=== PATIENT | male | born 1990 | race African-American/Black ===

== ENCOUNTER 2019-11-16 16:30 | Inpatient (IN) | payer OTHER ==
[2019-11-16 16:47] VITALS: BMI 21.6
--- NOTE | 2019-11-16 17:35 | BHS.RME ---
Substance Use & Tx History - Substance Use History Alcohol Substance amount: 2 pints vodka Frequency of use: Daily Substance route: Oral Date of Last Use: 11/16/19 (age first use 18) Cocaine- Powder Substance amount: 3 hits Frequency of use: Once a month Substance route: Inhalation (ex: sniffing or snorting) Date of Last Use: 11/09/19 (age of first use 26) Marijuana/Hashish Substance amount: 4 blunts Frequency of use: Daily Substance route: Smoking Date of Last Use: 11/15/19 (age of first use 16) Nicotine Substance amount: 5 cigarettes Frequency of use: Daily Substance route: Smoking Date of Last Use: 11/16/19 (age of first use 16 ) - Last Treatment Date of last treatment: 2014 Treatment type: Substance Use Disorder (MADHAV) Where was last treatment: Detox Physical/Psych/Mental Status - Behavior General Behavior: Decreased activity Eye Contact: Normal - Cooperativeness Cooperativeness: Cooperative - Thinking Thought Processes: Tight Thought content: Future oriented - Physical Health Problems Is patient presently having any pain?: No Does patient presently have any injuries (include location): No Does patient currently have a fever: No Is patient : No CIWA Nausea/Vomitin-No Nausea/No Vomiting Muscle Tremors: 1-None Visible, but [place] Anxiety: 3 Agitation: 1-Slight > Activity Paroxysmal Sweats: No Perspiration Orientation: 0-Oriented Tacttile Disturbances: 0-None Auditory Disturbances: 0-None Visual Disturbances: 0-None Headache: 0-None Present CIWA-Ar Total Score: 5 Treatment Recommendation - Level of Care Level of Care: Acute Medical
--- NOTE | 2019-11-16 18:17 | HP ---
CIWA Score Nausea/Vomitin-No Nausea/No Vomiting Muscle Tremors: 1-None Visible, but [place] Anxiety: 3 Agitation: 1-Slight > Activity Paroxysmal Sweats: No Perspiration Orientation: 0-Oriented Tacttile Disturbances: 0-None Auditory Disturbances: 0-None Visual Disturbances: 0-None Headache: 0-None Present CIWA-Ar Total Score: 5 - Admission Criteria OASAS Guidelines: Admission for Medically Managed Detox: Requires at least one of the followin. CIWA greater than 12 2. Seizures within the past 24 hours 3. Delirium tremens within the past 24 hours 4. Hallucinations within the past 24 hours 5. Acute intervention needed for co occurring medical disorder 6. Acute intervention needed for co occurring psychiatric disorder 7. Severe withdrawal that cannot be handled at a lower level of care (continued vomiting, continued diarrhea, abnormal vital signs) requiring intravenous medication and/or fluids 8. Admitting History and Physical - Admission Chief Complaint: Tone Macias is a 29 year old with history of seizures that presents for alcohol detox. History of Present Illness: Tone Macias is a 29 year old with history of seizures that presents for alcohol detox. - Substance Use History Alcohol Substance amount: 2 pints vodka Frequency of use: Daily Substance route: Oral Date of Last Use: 11/16/19 (age first use 18) Cocaine- Powder Substance amount: 3 hits Frequency of use: Once a month Substance route: Inhalation (ex: sniffing or snorting) Date of Last Use: 11/09/19 (age of first use 26) Marijuana/Hashish Substance amount: 4 blunts Frequency of use: Daily Substance route: Smoking Date of Last Use: 11/15/19 (age of first use 16) Nicotine Substance amount: 5 cigarettes Frequency of use: Daily Substance route: Smoking Date of Last Use: 11/16/19 (age of first use 16 ) PMH: history of meningitis with medically induced coma for 1 year at age 12 PSH: None Psych: untreated depression Social: lives with mother Legal: none History Source: Patient Limitations to Obtaining History: No Limitations - Smoking History Smoking history: Current every day smoker Have you smoked in the past 12 months: Yes Aproximately how many cigarettes per day: 5 - Alcohol/Substance Use Hx Alcohol Use: Yes (VODKA) Admission ROS [facility] - [facility] Chief Complaint: Tone Macias is a 29 year old with history of seizures that presents for alcohol detox. Allergies/Adverse Reactions: Allergies Allergy/AdvReac Type Severity Reaction Status Date / Time No Known Allergies Allergy Verified 10/31/13 15:31 Exam Limitations: No Limitations - Ebola screening Have you traveled outside of the country in the last 21 days: No Have you had contact with anyone from an Ebola affected area: No Have you been sick,other than usual withdrawal symptoms: Yes (Hospitalized 2 weeks ago at [facility] for seizure; left AMA) Do you have a fever: No - Review of Systems Constitutional: Night Sweats EENT: reports: Nose Congestion, Dental Problems. denies: Blurred Vision, Eye Pain, Ear Pain, Hearing Loss Respiratory: reports: Cough, Shortness of Breath Cardiac: denies: Chest Pain, Lightheadedness, Syncope GI: denies: Constipated, Diarrhea, Nausea, Vomiting Musculoskeletal: denies: Back Pain Integumentary: denies: Pruritus, Rash Neuro: denies: Headache, Numbness, Paresthesia Hematology: denies: Blood Clots Psychiatric: reports: Orientated x3 Patient History - Patient Medical History Hx Asthma: No Hx Chronic Obstructive Pulmonary Disease (COPD): No Hx Cardiac Disorders: No Hx Hypertension: No Hx Hypercholesterolemia: No Hx Seizures: No ([place]) Hx Diabetes: No Hx Gastrointestinal Disorders: No Hx Genitourinary Disorders: No Hx Sexually Transmitted Disorders: No Hx Renal Disease (ESRD): No Hx Human Immunodeficiency Virus (HIV): No (NEGATIVE HX) Hx Hepatitis C: No Hx Depression: Yes (ONLY THERAPIST SESSIONS IN THE PAST, NEVER ON MEDS ) Hx Suicide Attempt: No (DENIES) Hx Schizophrenia: No - Patient Surgical History Past Surgical History: No Hx Neurologic Surgery: No Hx Cataract Extraction: No Hx Cardiac Surgery: No Hx Lung Surgery: No Hx Breast Surgery: No Hx Breast Biopsy: No Hx Abdominal Surgery: No Hx Appendectomy: No Hx Section: No Hx Orthopedic Surgery: No Anesthesia Reaction: No - Smoking Cessation Smoking history: Current every day smoker Have you smoked in the past 12 months: Yes Aproximately how many cigarettes per day: 5 Hx Chewing Tobacco Use: No Initiated information on smoking cessation: Yes 'Breaking Loose' booklet given: 11/16/19 Admission Physical Exam BHS - Vital Signs Vital Signs: Vital Signs - 24 hr 11/16/19 16:46 Temperature 98.4 F Pulse Rate 96 H Respiratory 18 Rate Blood Pressure 134/85 - Physical General Appearance: Yes: Intoxicated, Thin HEENTM: Yes: Hearing grossly Normal, Normocephalic, Normal Voice Respiratory: Yes: Decreased Breath Sounds, Wheezing (bilateral wheezes present) Neck: Yes: Within Normal Limits, Supple Breast: Yes: Breast Exam Deferred Cardiology: Yes: Tachycardia Abdominal: Yes: Normal Bowel Sounds, Non Tender, Flat, Soft Back: Yes: Normal Inspection Musculoskeletal: Yes: full range of Motion, Gait Steady Extremities: Yes: Tremors Neurological: Yes: Finger to Nose (disdiadochokinesia) Integumentary: Yes: Within Normal Limits Cleared for Admission S - Detox or Rehab [facility] Level of Care: Medically Managed Detox Regimen/Protocol: Librium Claeared for Rehab Admission: No Screened but not Admitted - Documentation of Visit Screened but not Admitted: No Breathalyzer - Breathalyzer Breathalyzer: 0.214 Urine Drug Screen - Test Device Lot number: [id number] Expiration date: 07/25/21 - Control Is test valid?: Yes - Results Drug screen NEGATIVE: No Urine drug screen results: THC-Marijuana, BZO-Benzodiazepines Inpatient Rehab Admission - Rehab Decision to Admit Inpatient rehab admission?: No
[2019-11-16] MEDS ORDERED: IBUPROFEN 400 MG TABLET (FP) PO PRN (18:30)
[2019-11-16] MEDS ORDERED: MAG HYDROX/AL HYDROX/SIMETH 30 ML UNIT-DOSE CUP PO PRN (18:30)
[2019-11-16] MEDS ORDERED: ACETAMINOPHEN 325 MG TABLET (FP) PO PRN ×2 (18:30)
[2019-11-16] MEDS ORDERED: BISMUTH SUBSALICYLATE 524 MG/30 ML UD PO PRN (18:30)
[2019-11-16] MEDS ORDERED: NICOTINE POLACRILEX 2 MG GUM BUC PRN (18:30)
[2019-11-16] MEDS ORDERED: MAGNESIUM CITRATE 300 ML BOTTLE PO PRN (18:30)
[2019-11-16] MEDS ORDERED: ONDANSETRON *ODT* 4 MG TABLET SL PRN (18:30)
[2019-11-16] MEDS ORDERED: chlordiazePOXIDE HCL 25 MG CAPSULE PO PRN (18:30)
[2019-11-16] MEDS ORDERED: MENTHOL/PHENOL 1 EACH UD MM PRN (18:30)
[2019-11-16] MEDS ORDERED: ONDANSETRON *ODT* 4 MG TABLET SL ONE (18:30)
[2019-11-16] MEDS ORDERED: METHOCARBAMOL 500 MG TABLET PO PRN (18:30)
[2019-11-16] MEDS ORDERED: MAGNESIUM HYDROX 2400MG/30ML ORAL SUSPENSION 30 ML CUP PO PRN (18:30)
[2019-11-16] MEDS ORDERED: ALBUTEROL SO4 HFA INHALER IH PRN (18:35)
[2019-11-16] MEDS: hydrOXYzine PAMOATE 25 MG CAPSULE (FP) PO SCH (22:13)
[2019-11-16] MEDS: MELATONIN 5 MG TABLETS PO SCH (22:13)
[2019-11-16] MEDS: chlordiazePOXIDE HCL 25 MG CAPSULE PO SCH (22:13)
[2019-11-16] MEDS: THIAMINE HCL 100 MG TABLET (FP) PO SCH (22:13)
[2019-11-17] MEDS: hydrOXYzine PAMOATE 25 MG CAPSULE (FP) PO SCH ×5 (05:30→22:12)
[2019-11-17] MEDS: chlordiazePOXIDE HCL 25 MG CAPSULE PO SCH ×4 (05:30→22:11)
[2019-11-17] MEDS: NICOTINE 7 MG/24 HOURS TOPICAL PATCH TD SCH (10:09)
[2019-11-17] MEDS: NICOTINE 14 MG/24 HOURS TOPICAL PATCH TD SCH (10:10)
[2019-11-17] MEDS: PRENATAL VITAMINS W/ FOLIC ACID TABLET (FP) PO SCH (10:11)
--- NOTE | 2019-11-17 10:13 | CONSULT ---
[facility] Psychiatric Consult - Data Date of interview: 11/17/19 Admission source: [facility] Identifying data: Patient is a 29 year old single male, without children, unemployed, domiciled, and is not currently receiving financial assistance. This is one of multiple admissions for patient. Patient admitted to detox for alcohol and marijuana dependence. Substance Abuse History: Substance Use History. Alcohol. Substance amount: 2 pints vodka. Frequency of use: Daily. Substance route: Oral. Date of Last Use: 11/16/19 (age first use 18). Cocaine- Powder. Substance amount: 3 hits. Frequency of use: Once a month. Substance route: Inhalation (ex: sniffing or snorting). Date of Last Use: 11/09/19 (age of first use 26). Marijuana/Hashish. Substance amount: 4 blunts. Frequency of use: Daily. Substance route: Smoking. Date of Last Use: 11/15/19 (age of first use 16). Nicotine. Substance amount: 5 cigarettes. Frequency of use: Daily. Substance route: Smoking. Date of Last Use: 11/16/19 (age of first use 16 ) Medical History: history of meningitis with medically induced coma for 1 year at age 12, history of withdrawal seizures. Psychiatric History: Patient denies history of psychiatric hospitalization, outpatient psychiatric care, and suicide attempt. At present patient reports difficulty sleeping. Physical/Sexual Abuse/Trauma History: denies. Mental Status Exam - Mental Status Exam Alert and Oriented to: Time, Place, Person Cognitive Function: Good Patient Appearance: Well Groomed Mood: Withdrawn Affect: Mood Congruent Patient Behavior: Fatigued, Cooperative Speech Pattern: Appropriate Voice Loudness: Mildly Soft/Quiet Thought Process: Goal Oriented Thought Disorder: Not Present Hallucinations: Denies Suicidal Ideation: Denies Homicidal Ideation: Denies Insight/Judgement: Poor Sleep: Poorly Appetite: Fair Muscle strength/Tone: Normal Gait/Station: Other (Did not observe gait.) Psychiatric Findings - Problem List ([place] 1, 2,3) (1) Alcohol use disorder Current Visit: Yes Status: Acute (2) Cannabis dependence Current Visit: Yes Status: Acute (3) Substance-induced sleep disorder Current Visit: Yes Status: Acute - Initial Treatment Plan Initial Treatment Plan: Psychoeducation provided. Detoxification in progress. Will order Belsomra 10mg HS PRN. Benefits and side effects discussed. Verbal consent given.
[2019-11-17 10:17] LABS: HEMATOCRIT 40.7 % (35.4-49); MCH 30.9 pg (25.7-33.7); MEAN CELL VOLUME 96.7 fl (80-96); MEAN PLT VOLUME 8.3 fl (7.5-11.1); PLATELET COUNT 337 K/MM3 (134-434); RBC 4.21 M/mm3 (4.00-5.60); RDW 14.9 % (11.9-15.9); WHITE BLOOD COUNT 11.6 K/mm3 (4.0-10.0)
[2019-11-17 10:20] LABS: ALBUMIN 3.3 g/dl (3.4-5.0); BLOOD UREA NITROGEN 5.3 mg/dL (7-18); CALCIUM 8.4 mg/dL (8.5-10.1); POTASSIUM 3.4 mmol/L (3.5-5.1)
[2019-11-17 10:22] LABS: BILIRUBIN,TOTAL 0.6 mg/dL (0.2-1); CREATININE 0.6 mg/dL (0.55-1.3); TOT PROT 7.1 g/dl (6.4-8.2)
--- NOTE | 2019-11-17 11:05 | PN ---
S CIWA - CIWA Score Nausea/Vomitin-No Nausea/No Vomiting Muscle Tremors: None Anxiety: 1-Mildly Anxious Agitation: 2 Paroxysmal Sweats: No Perspiration Orientation: 1-Uncertain about Date Tacttile Disturbances: 0-None Auditory Disturbances: 0-None Visual Disturbances: 0-None Headache: 1-Very Mild CIWA-Ar Total Score: 5 S Progress Note (SOAP) Subjective: Patient is a 29 year old male with history of alcohol use disorder, cocaine use disorder, nicotine dependence, marijuana dependence, bacterial meningitis (12 years old, treated at [facility]), depression, admitted on 11/16/2019 for alcohol detox. Patient in bed, resting. Mild distress; agitation, anxiety. Objective: 11/17/19 11:02 General: resting in exam bed, mild distress HEENT: NCAT, PERRL, EOMI Neuro: moving all four extremities equally. Mentation: normal Vital Signs Temperature 97.1 F L 11/17/19 12:55 Pulse Rate 71 11/17/19 12:55 Respiratory Rate 18 11/17/19 12:55 Blood Pressure 147/98 11/17/19 12:55 O2 Sat by Pulse Oximetry (%) 97 11/17/19 12:55 Laboratory Tests 11/17/19 11/17/19 11/17/19 07:30 07:30 07:30 WBC 11.6 H RBC 4.21 Hgb 13.0 Hct 40.7 MCV 96.7 H MCH 30.9 MCHC 32.0 RDW 14.9 D Plt Count 337 D MPV 8.3 Sodium 139 Potassium 3.4 L Chloride 101 Carbon Dioxide 29 Anion Gap 9 BUN 5.3 L Creatinine 0.6 Est GFR (CKD-EPI)AfAm 158.58 Est GFR (CKD-EPI)NonAf 136.83 Random Glucose 98 Calcium 8.4 L Total Bilirubin 0.6 AST 17 ALT 13 Alkaline Phosphatase 85 Total Protein 7.1 Albumin 3.3 L Syphilis Serology Non-reactive Assessment: 11/17/19 11:03 Patient is a 29 year old male with history of alcohol use disorder, cocaine use disorder, nicotine dependence, marijuana dependence, bacterial meningitis (12 years old, treated at [facility]), depression, admitted on 11/16/2019 for alcohol detox. Plan: Alcohol use disorder: continue Librium taper Cocaine use disorder Nicotine dependence: Nicotine patch, gum Marijuana dependence History of bacterial meningitis; treated at [facility] Depression: patient evaluated by psychiatry; begin Suvorexant Hypokalemia: replete with KCL 40meq PO, repeat BMP in morning.
--- NOTE | 2019-11-17 11:22 | EKG ---
Test Reason : Blood Pressure : / mmHG Vent. Rate : 085 BPM Atrial Rate : 085 BPM P-R Int : 174 ms QRS Dur : 102 ms QT Int : 396 ms P-R-T Axes : 077 041 057 degrees QTc Int : 471 ms NORMAL SINUS RHYTHM WITH SINUS ARRHYTHMIA NO PREVIOUS ECGS AVAILABLE Confirmed by SALOME LY MD ([id number]) on 11/17/2019 11:21:28 AM Referred By: Confirmed By:SALOME LY MD
[2019-11-17] MEDS ORDERED: POTASSIUM CHLORIDE ORAL LIQUID 20 MEQ/15 ML PO ONE (14:09)
[2019-11-17] MEDS ORDERED: cloNIDine HCL 0.1 MG TABLET PO ONE (19:21)
[2019-11-17] MEDS ORDERED: SUVOREXANT 10 MG TABLET PO PRN (22:00)
[2019-11-17] MEDS: THIAMINE HCL 100 MG TABLET (FP) PO SCH (22:11)
[2019-11-17] MEDS: MELATONIN 5 MG TABLETS PO SCH (22:12)
[2019-11-18] MEDS: hydrOXYzine PAMOATE 25 MG CAPSULE (FP) PO SCH ×5 (05:55→22:26)
[2019-11-18] MEDS: chlordiazePOXIDE HCL 25 MG CAPSULE PO SCH ×4 (05:55→22:26)
[2019-11-18] MEDS ORDERED: cloNIDine HCL 0.1 MG TABLET PO ONE (07:45)
--- NOTE | 2019-11-18 07:49 | PN ---
S Progress Note Note: Patient's blood pressure was B/P 159/117 and B/P 148/117 respectively. Vital Signs 11/18/19 11/18/19 11/18/19 06:52 07:33 07:34 Temperature 97.1 F L 97.1 F L Pulse Rate 91 H 91 H Respiratory 20 20 Rate Blood Pressure 159/117 H 159/117 H 148/117 H O2 Sat by Pulse 98 98 Oximetry (%) Action: Clonidine 0.1mg tablet ordered
[2019-11-18] MEDS: NICOTINE 14 MG/24 HOURS TOPICAL PATCH TD SCH (10:05)
[2019-11-18] MEDS: PRENATAL VITAMINS W/ FOLIC ACID TABLET (FP) PO SCH (10:06)
[2019-11-18] MEDS: NICOTINE 7 MG/24 HOURS TOPICAL PATCH TD SCH (12:02)
--- NOTE | 2019-11-18 12:02 | PN ---
S CIWA - CIWA Score Nausea/Vomitin-No Nausea/No Vomiting Muscle Tremors: None Anxiety: 3 Agitation: 0-Normal Activity Paroxysmal Sweats: 2 Orientation: 0-Oriented Tacttile Disturbances: 0-None Auditory Disturbances: 0-None Visual Disturbances: 0-None Headache: 2-Mild CIWA-Ar Total Score: 7 BHS Progress Note (SOAP) Subjective: c/o anxiety, headache, and sweats. Objective: 11/18/19 12:02 Vital Signs 11/18/19 11/18/19 11/18/19 06:52 07:33 07:34 Temperature 97.1 F L 97.1 F L Pulse Rate 91 H 91 H Respiratory 20 20 Rate Blood Pressure 159/117 H 159/117 H 148/117 H O2 Sat by Pulse 98 98 Oximetry (%) 11/18/19 08:36 Temperature 97.3 F L Pulse Rate 75 Respiratory 18 Rate Blood Pressure 141/111 H O2 Sat by Pulse Oximetry (%) Laboratory Last Values WBC 11.6 K/mm3 (4.0-10.0) H 11/17/19 07:30 RBC 4.21 M/mm3 (4.00-5.60) 11/17/19 07:30 Hgb 13.0 GM/dL (11.7-16.9) 11/17/19 07:30 Hct 40.7 % (35.4-49) 11/17/19 07:30 MCV 96.7 fl (80-96) H 11/17/19 07:30 MCH 30.9 pg (25.7-33.7) 11/17/19 07:30 MCHC 32.0 g/dl (32.0-35.9) 11/17/19 07:30 RDW 14.9 % (11.9-15.9) D 11/17/19 07:30 Plt Count 337 K/MM3 (134-434) D 11/17/19 07:30 MPV 8.3 fl (7.5-11.1) 11/17/19 07:30 Sodium 139 mmol/L (136-145) 11/17/19 07:30 Potassium 3.4 mmol/L (3.5-5.1) L 11/17/19 07:30 Chloride 101 mmol/L (98-107) 11/17/19 07:30 Carbon Dioxide 29 mmol/L (21-32) 11/17/19 07:30 Anion Gap 9 MMOL/L (8-16) 11/17/19 07:30 BUN 5.3 mg/dL (7-18) L 11/17/19 07:30 Creatinine 0.6 mg/dL (0.55-1.3) 11/17/19 07:30 Est GFR (CKD-EPI)AfAm 158.58 11/17/19 07:30 Est GFR (CKD-EPI)NonAf 136.83 11/17/19 07:30 Random Glucose 98 mg/dL (74-106) 11/17/19 07:30 Calcium 8.4 mg/dL (8.5-10.1) L 11/17/19 07:30 Total Bilirubin 0.6 mg/dL (0.2-1) 11/17/19 07:30 AST 17 U/L (15-37) 11/17/19 07:30 ALT 13 U/L (13-61) 11/17/19 07:30 Alkaline Phosphatase 85 U/L (45-117) 11/17/19 07:30 Total Protein 7.1 g/dl (6.4-8.2) 11/17/19 07:30 Albumin 3.3 g/dl (3.4-5.0) L 11/17/19 07:30 Syphilis Serology Non-reactive (NONREACTIVE) 11/17/19 07:30 Labs noted. Assessment: 11/18/19 12:02 AOX3, in no acute respiratory distress. Full ROM, ambulating in the unit. Withdrawal symptoms. Plan: continue detox.
[2019-11-18 12:58] LABS: BLOOD UREA NITROGEN 4.2 mg/dL (7-18); CALCIUM 8.9 mg/dL (8.5-10.1)
[2019-11-18 13:00] LABS: CREATININE 0.6 mg/dL (0.55-1.3)
[2019-11-18] MEDS: MELATONIN 5 MG TABLETS PO SCH (22:26)
[2019-11-18] MEDS: THIAMINE HCL 100 MG TABLET (FP) PO SCH (22:26)
[2019-11-19] MEDS ORDERED: chlordiazePOXIDE HCL 10 MG CAPSULE PO PRN
[2019-11-19] MEDS: chlordiazePOXIDE HCL 10 MG CAPSULE PO SCH ×4 (05:45→22:10)
[2019-11-19] MEDS: hydrOXYzine PAMOATE 25 MG CAPSULE (FP) PO SCH ×2 (05:46→10:10)
[2019-11-19] MEDS ORDERED: cloNIDine HCL 0.1 MG TABLET PO ONE (05:48)
--- NOTE | 2019-11-19 06:37 | PN ---
[facility] Progress Note Note: Patient's blood pressure is B/P 161/103. PRecheked atient is asymptomatic \ Vital Signs 11/19/19 11/19/19 11/19/19 00:06 05:34 07:09 Temperature 97.1 F L Pulse Rate 77 114 H 74 Respiratory 18 18 18 Rate Blood Pressure 133/100 161/103 H 134/93 O2 Sat by Pulse 98 Oximetry (%) Action: Clonidine 0.1mg tablet oral ordered. Rechecked B/P is now B/P 134/93
[2019-11-19] MEDS: NICOTINE 14 MG/24 HOURS TOPICAL PATCH TD SCH (10:10)
[2019-11-19] MEDS: PRENATAL VITAMINS W/ FOLIC ACID TABLET (FP) PO SCH (10:10)
--- NOTE | 2019-11-19 11:06 | PN ---
S CIWA - CIWA Score Nausea/Vomitin-No Nausea/No Vomiting Muscle Tremors: 1-None Visible, but [place] Anxiety: 1-Mildly Anxious Agitation: 1-Slight > Activity Paroxysmal Sweats: No Perspiration Orientation: 0-Oriented Tacttile Disturbances: 0-None Auditory Disturbances: 0-None Visual Disturbances: 2-Mild Sensitivity Headache: 0-None Present CIWA-Ar Total Score: 5 BHS Progress Note (SOAP) Subjective: 29 years old male admitted on 11/16/19 for alcohol withdrawal sx management treating with librium detox regiment Vital Signs - 24 hr 11/18/19 11/18/19 11/18/19 12:27 16:43 20:39 Temperature 97.3 F L 98.0 F 97.3 F L Pulse Rate 80 81 86 Respiratory 18 18 16 Rate Blood Pressure 123/89 141/93 144/103 H O2 Sat by Pulse 99 98 Oximetry (%) 11/18/19 11/19/19 11/19/19 23:25 00:06 05:34 Temperature 97.1 F L Pulse Rate 86 77 114 H Respiratory 18 18 18 Rate Blood Pressure 151/104 H 133/100 161/103 H O2 Sat by Pulse 98 Oximetry (%) 11/19/19 11/19/19 07:09 08:54 Temperature 97.7 F Pulse Rate 74 82 Respiratory 18 18 Rate Blood Pressure 134/93 130/89 O2 Sat by Pulse Oximetry (%) bp elevation amlodipine 10 mg po Objective: 11/19/19 11:04 Laboratory Tests 11/16/19 11/17/19 11/17/19 17:00 07:30 07:30 WBC 11.6 H RBC 4.21 Hgb 13.0 Hct 40.7 MCV 96.7 H MCH 30.9 MCHC 32.0 RDW 14.9 D Plt Count 337 D MPV 8.3 Sodium Potassium Chloride Carbon Dioxide Anion Gap BUN Creatinine Est GFR (CKD-EPI)AfAm Est GFR (CKD-EPI)NonAf Random Glucose Calcium Total Bilirubin AST ALT Alkaline Phosphatase Total Protein Albumin Syphilis Serology Non-reactive COVID-19 (JAMEL) Not detected 11/17/19 11/18/19 07:30 07:30 WBC RBC Hgb Hct MCV MCH MCHC RDW Plt Count MPV Sodium 139 139 Potassium 3.4 L 4.0 Chloride 101 104 Carbon Dioxide 29 28 Anion Gap 9 7 L BUN 5.3 L 4.2 L Creatinine 0.6 0.6 Est GFR (CKD-EPI)AfAm 158.58 158.58 Est GFR (CKD-EPI)NonAf 136.83 136.83 Random Glucose 98 102 Calcium 8.4 L 8.9 Total Bilirubin 0.6 AST 17 ALT 13 Alkaline Phosphatase 85 Total Protein 7.1 Albumin 3.3 L Syphilis Serology COVID-19 (JAMEL) lab noted Assessment: 11/19/19 11:05 alcohol withdrawal hypertension Plan: librium regiment amlodipine 10 mg po
[2019-11-19] MEDS: amLODIPine BESYLATE 10 MG TABLET (FP) PO SCH (11:31)
[2019-11-19] MEDS ORDERED: hydrOXYzine PAMOATE 25 MG CAPSULE (FP) PO PRN (13:21)
[2019-11-19] MEDS: THIAMINE HCL 100 MG TABLET (FP) PO SCH (21:14)
[2019-11-19] MEDS: MELATONIN 5 MG TABLETS PO SCH (21:14)
[2019-11-20] MEDS: chlordiazePOXIDE HCL 10 MG CAPSULE PO SCH ×2 (06:19→17:21)
[2019-11-20] MEDS: amLODIPine BESYLATE 10 MG TABLET (FP) PO SCH (10:25)
[2019-11-20] MEDS: PRENATAL VITAMINS W/ FOLIC ACID TABLET (FP) PO SCH (10:25)
[2019-11-20] MEDS: NICOTINE 14 MG/24 HOURS TOPICAL PATCH TD SCH (10:26)
--- NOTE | 2019-11-20 11:31 | PN ---
S CIWA - CIWA Score Nausea/Vomitin-No Nausea/No Vomiting Muscle Tremors: 1-None Visible, but [place] Anxiety: 1-Mildly Anxious Agitation: 0-Normal Activity Paroxysmal Sweats: No Perspiration Orientation: 0-Oriented Tacttile Disturbances: 0-None Auditory Disturbances: 0-None Visual Disturbances: 0-None Headache: 0-None Present CIWA-Ar Total Score: 2 BHS Progress Note (SOAP) Subjective: 29 years old male admitted on 11/16/19 for alcohol withdrawal sx management treating with librium detox regiment feeling better today Vital Signs - 24 hr 11/19/19 11/19/19 11/19/19 12:48 16:47 20:28 Temperature 97.7 F 97.7 F 97.5 F L Pulse Rate 96 H 86 95 H Respiratory 18 18 18 Rate Blood Pressure 139/94 140/92 147/98 O2 Sat by Pulse 98 98 Oximetry (%) 11/20/19 11/20/19 06:35 08:32 Temperature 97.6 F 96.7 F L Pulse Rate 77 89 Respiratory 18 18 Rate Blood Pressure 130/86 117/74 O2 Sat by Pulse 100 100 Oximetry (%) bp controlled by amlodipine 10 mg po daily Objective: 11/20/19 11:35 Laboratory Tests 11/16/19 11/17/19 11/17/19 17:00 07:30 07:30 WBC 11.6 H RBC 4.21 Hgb 13.0 Hct 40.7 MCV 96.7 H MCH 30.9 MCHC 32.0 RDW 14.9 D Plt Count 337 D MPV 8.3 Sodium Potassium Chloride Carbon Dioxide Anion Gap BUN Creatinine Est GFR (CKD-EPI)AfAm Est GFR (CKD-EPI)NonAf Random Glucose Calcium Total Bilirubin AST ALT Alkaline Phosphatase Total Protein Albumin Syphilis Serology Non-reactive COVID-19 (JAMEL) Not detected 11/17/19 11/18/19 07:30 07:30 WBC RBC Hgb Hct MCV MCH MCHC RDW Plt Count MPV Sodium 139 139 Potassium 3.4 L 4.0 Chloride 101 104 Carbon Dioxide 29 28 Anion Gap 9 7 L BUN 5.3 L 4.2 L Creatinine 0.6 0.6 Est GFR (CKD-EPI)AfAm 158.58 158.58 Est GFR (CKD-EPI)NonAf 136.83 136.83 Random Glucose 98 102 Calcium 8.4 L 8.9 Total Bilirubin 0.6 AST 17 ALT 13 Alkaline Phosphatase 85 Total Protein 7.1 Albumin 3.3 L Syphilis Serology COVID-19 (JAMEL) lab noted Assessment: 11/20/19 11:37 alcohol withdrawal Plan: librium regiment
[2019-11-20 17:03] VITALS: TEMP 97.5
[2019-11-20] MEDS ORDERED: LISINOPRIL 10 MG TABLET (FP) PO SCH (22:00)
[2019-11-20] MEDS: THIAMINE HCL 100 MG TABLET (FP) PO SCH (22:07)
[2019-11-20] MEDS: MELATONIN 5 MG TABLETS PO SCH (22:08)
[2019-11-21] MEDS ORDERED: chlordiazePOXIDE HCL 10 MG CAPSULE PO ONE (05:00)
[2019-11-21 06:15] VITALS: BP 127/73; PULSE 65
--- NOTE | 2019-11-21 10:00 | DS ---
[facility] Detox Discharge Summary Admission Date: 11/16/19 Discharge Date: 11/21/19 - History Present History: Alcohol Dependence Additional Comments: 29 years old male admitted on 11/16/19 for alcohol withdrawal sx management treated with ativan detox regiment seen by psychiatrist federica wagner mr hart has completed the ativan regiment and is tolerated well alert oriented x 3 speech clearly coherently respiratory clear lung sounds bilaterally on auscultation abdomen soft flat no rebound tenderness skin warm and dry General Appearance: Yes: Intoxicated, Thin HEENTM: Yes: Hearing grossly Normal, Normocephalic, Normal Voice Respiratory: Yes: Decreased Breath Sounds, Wheezing (bilateral wheezes present) Neck: Yes: Within Normal Limits, Supple Breast: Yes: Breast Exam Deferred Cardiology: Yes: Tachycardia Abdominal: Yes: Normal Bowel Sounds, Non Tender, Flat, Soft Back: Yes: Normal Inspection Musculoskeletal: Yes: full range of Motion, Gait Steady Extremities: Yes: Tremors Neurological: Yes: Finger to Nose (disdiadochokinesia) Integumentary: Yes: Within Normal Limits Pertinent Past History: time for discharge 34 minutes - Physical Exam Results Vital Signs: Vital Signs Temperature 97.5 F L 11/21/19 06:13 Pulse Rate 65 11/21/19 06:13 Respiratory Rate 18 11/21/19 06:13 Blood Pressure 127/73 11/21/19 06:13 O2 Sat by Pulse Oximetry (%) 99 11/21/19 06:13 Pertinent Admission Physical Exam Findings: alcohol withdrawal Laboratory Tests 11/16/19 11/17/19 11/17/19 17:00 07:30 07:30 WBC 11.6 H RBC 4.21 Hgb 13.0 Hct 40.7 MCV 96.7 H MCH 30.9 MCHC 32.0 RDW 14.9 D Plt Count 337 D MPV 8.3 Sodium Potassium Chloride Carbon Dioxide Anion Gap BUN Creatinine Est GFR (CKD-EPI)AfAm Est GFR (CKD-EPI)NonAf Random Glucose Calcium Total Bilirubin AST ALT Alkaline Phosphatase Total Protein Albumin Syphilis Serology Non-reactive COVID-19 (JAMEL) Not detected 11/17/19 11/18/19 07:30 07:30 WBC RBC Hgb Hct MCV MCH MCHC RDW Plt Count MPV Sodium 139 139 Potassium 3.4 L 4.0 Chloride 101 104 Carbon Dioxide 29 28 Anion Gap 9 7 L BUN 5.3 L 4.2 L Creatinine 0.6 0.6 Est GFR (CKD-EPI)AfAm 158.58 158.58 Est GFR (CKD-EPI)NonAf 136.83 136.83 Random Glucose 98 102 Calcium 8.4 L 8.9 Total Bilirubin 0.6 AST 17 ALT 13 Alkaline Phosphatase 85 Total Protein 7.1 Albumin 3.3 L Syphilis Serology COVID-19 (JAMEL) lab noted - Treatment Hospital Course: Detox Protocol Followed, Detoxed Safely, Responded well, Discharged Condition Good, Rehab Referral Accepted Patient has Accepted a Rehab Referral to: [facility] - Medication Discharge Medications: Ambulatory Orders Albuterol Sulfate Inhaler - [Ventolin HFA Inhaler -] 2 puff PO Q4HWA PRN 11/16/19 Albuterol Sulfate Inhaler - [Ventolin HFA Inhaler -] 2 puff IH Q4H PRN #1 inhaler 11/20/19 Amlodipine Besylate [Norvasc -] 10 mg PO DAILY #30 tablet 11/20/19 - Diagnosis (1) Alcohol use disorder Current Visit: Yes Status: Acute (2) Hypertension Current Visit: Yes Status: Chronic Qualifiers: Hypertension type: essential hypertension Qualified Code(s): I10 - [facility] l (primary) hypertension - AMA Did Patient Leave Against Medical Advice: No CIWA Score - CIWA Score Nausea/Vomitin-No Nausea/No Vomiting Muscle Tremors: 1-None Visible, but [place] Anxiety: 0-No Anxiety, at Ease Agitation: 0-Normal Activity Paroxysmal Sweats: No Perspiration Orientation: 0-Oriented Tacttile Disturbances: 0-None Auditory Disturbances: 0-None Visual Disturbances: 0-None Headache: 0-None Present CIWA-Ar Total Score: 1
== END 2019-11-21 08:50 | disposition home or self-care (01) | DRG 775 ==
LOC: YASAS 16:30 → Y3N 19:22
PROVIDERS: ADMIT Allergy & Immunology; ATTEND Allergy & Immunology
PROC: HZ2ZZZZ Detoxification Services for Substance Abuse Treatment (ICD-10-PCS; principal; 2019-11-16)
DX: F10.230 Alcohol dependence with withdrawal, uncomplicated (principal); F10.220 Alcohol dependence with intoxication, uncomplicated; F12.20 Cannabis dependence, uncomplicated; F17.210 Nicotine dependence, cigarettes, uncomplicated; F19.282 Other psychoactive substance dependence with psychoactive substance-induced sleep disorder; I10 Essential (primary) hypertension; R00.0 Tachycardia, unspecified; Z86.69 Personal history of other diseases of the nervous system and sense organs
CPT/HCPCS: 36415; 80048; 80053; 85027; 86780; 93005; 93010; J0735; Q0162; U0003

== ENCOUNTER 2021-10-02 07:07 | Observation (INO) | payer OTHER ==
[2021-10-02] MEDS ORDERED: chlordiazePOXIDE HCL 25 MG CAPSULE PO ONE (07:49)
[2021-10-02] MEDS ORDERED: ALBUTEROL SO4 HFA INHALER IH ONE ×2 (07:50→08:55)
[2021-10-02] MEDS ORDERED: chlordiazePOXIDE HCL 25 MG CAPSULE ONE ×2 (08:55→15:50)
[2021-10-02 10:32] LABS: HEMATOCRIT 44.9 % (35.4-49); HEMOGLOBIN 14.8 GM/dL (11.7-16.9); LYMPH % 28.1 % (8-40); MCH 29.5 pg (25.7-33.7); MCHC 32.9 g/dl (32.0-35.9); MEAN CELL VOLUME 89.6 fl (80-96); MEAN PLT VOLUME 8.6 fl (7.5-11.1); MONO % 10.8 % (3.8-10.2); NEUT % 58.1 % (42.8-82.8); PLATELET COUNT 207 10^3/uL (134-434); RBC 5.01 M/mm3 (4.00-5.60); RDW 13.9 % (11.9-15.9)
[2021-10-02 12:41] LABS: BLOOD UREA NITROGEN 5.3 mg/dL (7-18); CREATININE 0.8 mg/dL (0.55-1.3)
[2021-10-02 12:42] LABS: ALBUMIN 5.1 g/dl (3.4-5.0); BILIRUBIN,TOTAL 0.8 mg/dL (0.2-1); TOT PROT 9.3 g/dl (6.4-8.2)
[2021-10-02] MEDS ORDERED: chlordiazePOXIDE HCL 25 MG CAPSULE PO PRN (12:56)
[2021-10-02] MEDS ORDERED: SODIUM CHLORIDE 1,000 ML IV SCH (13:00)
[2021-10-02] MEDS ORDERED: THIAMINE HCL 100 MG TABLET (FP) ONE (13:12)
[2021-10-02] MEDS ORDERED: FOLIC ACID 1 MG TABLET (FP) ONE (13:13)
[2021-10-02] MEDS ORDERED: ALBUTEROL SO4 HFA INHALER IH PRN (13:14)
[2021-10-02] MEDS: THIAMINE HCL 100 MG TABLET (FP) PO SCH (13:21)
[2021-10-02] MEDS: FOLIC ACID 1 MG TABLET (FP) PO SCH (13:21)
[2021-10-02 13:54] LABS: PH,URINE >= 9.0 (5.0-8.0); URINE APPEARANCE CLEAR; URINE BILIRUBIN NEGATIVE (NEGATIVE); URINE COLOR YELLOW; URINE GLUCOSE (UA) NEGATIVE (NEGATIVE); URINE KETONE NEGATIVE (NEGATIVE); URINE LEUK ESTERASE NEGATIVE (NEGATIVE); URINE NITRITE NEGATIVE (NEGATIVE); URINE PROTEIN TRACE (NEGATIVE); URINE UROBILINOGEN 0.2 mg/dL (0.2-1.0)
[2021-10-02] MEDS: chlordiazePOXIDE HCL 25 MG CAPSULE PO SCH ×5 (15:59→23:12)
[2021-10-02] MEDS: LABETALOL HCL 100 MG TABLET (FP) PO SCH (21:43)
[2021-10-03 03:08] VITALS: BMI 24.6
[2021-10-03] MEDS: chlordiazePOXIDE HCL 25 MG CAPSULE PO SCH ×3 (05:20→16:25)
[2021-10-03 09:29] LABS: BASO % 0.9 % (0-2.0); EOS % 3.3 % (0-4.5); HEMATOCRIT 45.7 % (35.4-49); HEMOGLOBIN 15.1 GM/dL (11.7-16.9); MCHC 33.1 g/dl (32.0-35.9); MEAN CELL VOLUME 90.5 fl (80-96); MEAN PLT VOLUME 8.6 fl (7.5-11.1); MONO % 11.8 % (3.8-10.2); PLATELET COUNT 199 10^3/uL (134-434); RBC 5.04 M/mm3 (4.00-5.60); RDW 14.1 % (11.9-15.9); WHITE BLOOD COUNT 5.4 K/mm3 (4.0-10.0)
[2021-10-03 09:41] LABS: ACTIVATED PTT 31.5 SECONDS (25.2-36.5); INR 0.96 (0.83-1.09)
[2021-10-03 09:59] LABS: CALCIUM 9.4 mg/dL (8.5-10.1)
[2021-10-03 10:00] LABS: BLOOD UREA NITROGEN 6.7 mg/dL (7-18); MAGNESIUM 1.8 mg/dL (1.8-2.4)
[2021-10-03] MEDS ORDERED: ENOXAPARIN NA (PORCINE) 40 MG/0.4 ML DISP.SYRIN SQ SCH (10:00)
[2021-10-03] MEDS ORDERED: amLODIPine BESYLATE 5 MG TABLET (FP) PO SCH (10:00)
[2021-10-03] MEDS ORDERED: levETIRAcetam XR 500 MG TAB PO SCH (10:00)
[2021-10-03 10:02] LABS: CREATININE 0.7 mg/dL (0.55-1.3)
[2021-10-03 10:04] LABS: BILIRUBIN,TOTAL 0.8 mg/dL (0.2-1); TOT PROT 7.6 g/dl (6.4-8.2)
[2021-10-03] MEDS: THIAMINE HCL 100 MG TABLET (FP) PO SCH (10:06)
[2021-10-03] MEDS: LABETALOL HCL 100 MG TABLET (FP) PO SCH (10:06)
[2021-10-03] MEDS: FOLIC ACID 1 MG TABLET (FP) PO SCH (10:06)
[2021-10-03 16:22] VITALS: PULSE 84
[2021-10-03 17:54] VITALS: BP 124/88; TEMP 98.2
[2021-10-04] MEDS ORDERED: chlordiazePOXIDE HCL 25 MG CAPSULE PO SCH (05:00)
[2021-10-05] MEDS ORDERED: chlordiazePOXIDE HCL 10 MG CAPSULE PO PRN
[2021-10-05] MEDS ORDERED: chlordiazePOXIDE HCL 10 MG CAPSULE PO SCH (05:00)
[2021-10-06] MEDS ORDERED: chlordiazePOXIDE HCL 10 MG CAPSULE PO SCH (05:00)
[2021-10-07] MEDS ORDERED: chlordiazePOXIDE HCL 10 MG CAPSULE PO ONE (05:00)
== END 2021-10-03 18:14 | disposition other institution (70) ==
LOC: JER 07:07 → UNDOADMOB 13:01 → JERBED 13:01 → OBSVTOIN 13:11 → INTOOBSV 13:11 → J5S 21:02 → JERBED 21:02 → J5S 10-03 13:19
PROVIDERS: ADMIT Internal Medicine; ATTEND Internal Medicine
PROC: 3E023GC Introduction of Other Therapeutic Substance into Muscle, Percutaneous Approach (ICD-10-PCS; principal; 2021-10-03)
PROC: 3E0337Z Introduction of Electrolytic and Water Balance Substance into Peripheral Vein, Percutaneous Approach (ICD-10-PCS; 2021-10-03)
DX: F10.130 Alcohol abuse with withdrawal, uncomplicated (principal); I10 Essential (primary) hypertension; J45.909 Unspecified asthma, uncomplicated; R00.0 Tachycardia, unspecified; F12.10 Cannabis abuse, uncomplicated; R25.1 Tremor, unspecified; Z86.61 Personal history of infections of the central nervous system; Z29.8 Encounter for other specified prophylactic measures
CPT/HCPCS: 0241U-QW; 36415; 70450-TC; 71045-TC-FY; 80053; 80177; 81003; 82962; 83735; 84100; 84443; 85025; 85027; 85610; 85730; 86780; 87086; 87811; 96360; 96372; 99285-25; C9803-CS; G0378; U0003; U0005

== ENCOUNTER 2022-10-21 13:11 | Inpatient (IN) | payer OTHER ==
[2022-10-21 14:11] VITALS: BMI 24.7
[2022-10-21] MEDS ORDERED: AMMONIUM LACTATE 12% LOTION 225 GM BOTTLE TP PRN (16:36)
[2022-10-21] MEDS ORDERED: NALOXONE HCL (KLOXXADO) 8 MG SPRAY NS PRN (16:36)
[2022-10-21] MEDS ORDERED: IBUPROFEN 600 MG TABLET (FP) PO PRN (16:36)
[2022-10-21] MEDS ORDERED: NALOXONE HCL 0.4 MG/ML VIAL IM PRN (16:36)
[2022-10-21] MEDS ORDERED: BENZONATATE 200 MG CAPSULE PO PRN (16:36)
[2022-10-21] MEDS ORDERED: POLYETHYLENE GLYCOL (HEALTHYLAX) 3350 17 GM PACKET PO PRN (16:36)
[2022-10-21] MEDS ORDERED: TUBERCULIN PPD 5 TU/0.1ML SYRINGE (IN PATIENT USE ONLY) ID ONE (16:36)
[2022-10-21] MEDS ORDERED: ACETAMINOPHEN 325 MG TABLET (FP) PO PRN (16:36)
[2022-10-21] MEDS ORDERED: NICOTINE 10 MG CARTRIDGE (INHALER) IH PRN (16:36)
[2022-10-21] MEDS ORDERED: MAGNESIUM HYDROX 2400MG/30ML ORAL SUSPENSION 30 ML CUP PO PRN (16:36)
[2022-10-21] MEDS ORDERED: IBUPROFEN 400 MG TABLET (FP) PO PRN (16:36)
[2022-10-21] MEDS ORDERED: LOPERAMIDE HCL 2 MG CAPSULE PO PRN (16:36)
[2022-10-21] MEDS ORDERED: COLLOIDAL OATMEAL 1 BAR EACH TP PRN (16:36)
[2022-10-21] MEDS ORDERED: BENZOCAINE/MENTHOL (CHLORASEPTIC ) LOZENGE MM PRN (16:36)
[2022-10-21] MEDS ORDERED: guaiFENesin 600 MG TABLET.ER (FP) PO PRN (16:36)
[2022-10-21] MEDS ORDERED: TUBERCULIN PPD 5 TU/0.1ML VIAL ID ONE (18:44)
[2022-10-21] MEDS ORDERED: ALBUTEROL SO4 HFA INHALER IH PRN (18:49)
[2022-10-21] MEDS: THIAMINE HCL 100 MG TABLET (FP) PO SCH (21:21)
[2022-10-21] MEDS: MELATONIN 5 MG TABLETS PO SCH (21:21)
[2022-10-21] MEDS: OXYBUTYNIN CHLORIDE 5 MG TABLET PO SCH (21:22)
[2022-10-21] MEDS: levETIRAcetam 500 MG TABLET (FP) PO SCH (21:22)
[2022-10-21] MEDS: LABETALOL HCL 100 MG TABLET (FP) PO SCH (21:22)
[2022-10-21] MEDS: BUDESONIDE/FORMETEROL FUMARATE 160/4.5 mcg INHALER IH SCH (21:23)
[2022-10-21] MEDS ORDERED: levETIRAcetam XR 500 MG TAB PO SCH (22:00)
[2022-10-22] MEDS: levETIRAcetam 500 MG TABLET (FP) PO SCH ×2 (10:23→21:24)
[2022-10-22] MEDS: PRENATAL VITAMINS W/ FOLIC ACID TABLET (FP) PO SCH (10:23)
[2022-10-22] MEDS: CHOLECALCIFEROL (VIT D3) 1,000 UNIT (25 MCG) TABLET PO SCH (10:23)
[2022-10-22] MEDS: BUDESONIDE/FORMETEROL FUMARATE 160/4.5 mcg INHALER IH SCH ×2 (10:23→21:24)
[2022-10-22] MEDS: LABETALOL HCL 100 MG TABLET (FP) PO SCH ×2 (10:24→21:24)
[2022-10-22] MEDS: amLODIPine BESYLATE 10 MG TABLET (FP) PO SCH (10:24)
[2022-10-22 12:34] LABS: HEMOGLOBIN 13.6 GM/dL (11.7-16.9); MCH 29.6 pg (25.7-33.7); MCHC 32.3 g/dl (32.0-35.9); MEAN CELL VOLUME 91.5 fl (80-96); MEAN PLT VOLUME 8.5 fl (7.5-11.1); PLATELET COUNT 256 10^3/uL (134-434); RBC 4.59 M/mm3 (4.00-5.60); RDW 13.8 % (11.9-15.9); WHITE BLOOD COUNT 5.9 K/mm3 (4.0-10.0)
[2022-10-22 12:46] LABS: POTASSIUM 3.8 mmol/L (3.5-5.1)
[2022-10-22 13:01] LABS: ALBUMIN 3.6 g/dl (3.4-5.0); BLOOD UREA NITROGEN 6.4 mg/dL (7-18)
[2022-10-22 13:04] LABS: CREATININE 0.7 mg/dL (0.55-1.3)
[2022-10-22 13:05] LABS: TOT PROT 6.6 g/dl (6.4-8.2)
[2022-10-22 13:06] LABS: BILIRUBIN,TOTAL 0.6 mg/dL (0.2-1)
[2022-10-22] MEDS: OXYBUTYNIN CHLORIDE 5 MG TABLET PO SCH (21:24)
[2022-10-22] MEDS: MELATONIN 5 MG TABLETS PO SCH (21:24)
[2022-10-22] MEDS: THIAMINE HCL 100 MG TABLET (FP) PO SCH (21:24)
[2022-10-23] MEDS: PRENATAL VITAMINS W/ FOLIC ACID TABLET (FP) PO SCH (09:50)
[2022-10-23] MEDS: amLODIPine BESYLATE 10 MG TABLET (FP) PO SCH (09:50)
[2022-10-23] MEDS: BUDESONIDE/FORMETEROL FUMARATE 160/4.5 mcg INHALER IH SCH ×2 (09:50→21:17)
[2022-10-23] MEDS: levETIRAcetam 500 MG TABLET (FP) PO SCH ×2 (09:50→21:16)
[2022-10-23] MEDS: LABETALOL HCL 100 MG TABLET (FP) PO SCH ×2 (09:50→21:16)
[2022-10-23] MEDS: CHOLECALCIFEROL (VIT D3) 1,000 UNIT (25 MCG) TABLET PO SCH (09:51)
[2022-10-23] MEDS: OXYBUTYNIN CHLORIDE 5 MG TABLET PO SCH (21:16)
[2022-10-23] MEDS: THIAMINE HCL 100 MG TABLET (FP) PO SCH (21:17)
[2022-10-23] MEDS: MELATONIN 5 MG TABLETS PO SCH (21:17)
[2022-10-24] MEDS: LABETALOL HCL 100 MG TABLET (FP) PO SCH ×2 (10:17→21:37)
[2022-10-24] MEDS: amLODIPine BESYLATE 10 MG TABLET (FP) PO SCH (10:17)
[2022-10-24] MEDS: CHOLECALCIFEROL (VIT D3) 1,000 UNIT (25 MCG) TABLET PO SCH (10:17)
[2022-10-24] MEDS: BUDESONIDE/FORMETEROL FUMARATE 160/4.5 mcg INHALER IH SCH ×2 (10:17→21:37)
[2022-10-24] MEDS: levETIRAcetam 500 MG TABLET (FP) PO SCH ×2 (10:17→21:37)
[2022-10-24] MEDS: PRENATAL VITAMINS W/ FOLIC ACID TABLET (FP) PO SCH (10:17)
[2022-10-24 17:01] LABS: URINE APPEARANCE CLEAR; URINE BILIRUBIN NEGATIVE (NEGATIVE); URINE COLOR DK YELLOW; URINE GLUCOSE (UA) NEGATIVE (NEGATIVE); URINE KETONE NEGATIVE (NEGATIVE); URINE LEUK ESTERASE NEGATIVE (NEGATIVE); URINE NITRITE NEGATIVE (NEGATIVE); URINE PROTEIN NEGATIVE (NEGATIVE)
[2022-10-24] MEDS: OXYBUTYNIN CHLORIDE 5 MG TABLET PO SCH (21:37)
[2022-10-24] MEDS: THIAMINE HCL 100 MG TABLET (FP) PO SCH (21:37)
[2022-10-24] MEDS: MELATONIN 5 MG TABLETS PO SCH (21:37)
[2022-10-24] MEDS: hydrOXYzine PAMOATE 25 MG CAPSULE (FP) PO PRN (22:31)
[2022-10-25] MEDS: CHOLECALCIFEROL (VIT D3) 1,000 UNIT (25 MCG) TABLET PO SCH (09:48)
[2022-10-25] MEDS: BUDESONIDE/FORMETEROL FUMARATE 160/4.5 mcg INHALER IH SCH ×2 (09:48→21:13)
[2022-10-25] MEDS: amLODIPine BESYLATE 10 MG TABLET (FP) PO SCH (09:49)
[2022-10-25] MEDS: LABETALOL HCL 100 MG TABLET (FP) PO SCH ×2 (09:49→21:13)
[2022-10-25] MEDS: levETIRAcetam 500 MG TABLET (FP) PO SCH ×2 (09:49→21:13)
[2022-10-25] MEDS: PRENATAL VITAMINS W/ FOLIC ACID TABLET (FP) PO SCH (09:49)
[2022-10-25] MEDS: NICOTINE POLACRILEX 2 MG GUM BUC PRN ×2 (13:01→21:13)
[2022-10-25] MEDS: OXYBUTYNIN CHLORIDE 5 MG TABLET PO SCH (21:13)
[2022-10-25] MEDS: THIAMINE HCL 100 MG TABLET (FP) PO SCH (21:13)
[2022-10-25] MEDS: MELATONIN 5 MG TABLETS PO SCH (21:13)
[2022-10-25] MEDS: hydrOXYzine PAMOATE 25 MG CAPSULE (FP) PO PRN (21:13)
[2022-10-26] MEDS: amLODIPine BESYLATE 10 MG TABLET (FP) PO SCH (10:12)
[2022-10-26] MEDS: PRENATAL VITAMINS W/ FOLIC ACID TABLET (FP) PO SCH (10:12)
[2022-10-26] MEDS: LABETALOL HCL 100 MG TABLET (FP) PO SCH ×2 (10:13→21:43)
[2022-10-26] MEDS: CHOLECALCIFEROL (VIT D3) 1,000 UNIT (25 MCG) TABLET PO SCH (10:13)
[2022-10-26] MEDS: levETIRAcetam 500 MG TABLET (FP) PO SCH ×2 (10:13→21:42)
[2022-10-26] MEDS: BUDESONIDE/FORMETEROL FUMARATE 160/4.5 mcg INHALER IH SCH ×2 (10:14→21:42)
[2022-10-26] MEDS: MELATONIN 5 MG TABLETS PO SCH (21:42)
[2022-10-26] MEDS: THIAMINE HCL 100 MG TABLET (FP) PO SCH (21:42)
[2022-10-26] MEDS: OXYBUTYNIN CHLORIDE 5 MG TABLET PO SCH (21:43)
[2022-10-27] MEDS: CHOLECALCIFEROL (VIT D3) 1,000 UNIT (25 MCG) TABLET PO SCH (09:52)
[2022-10-27] MEDS: levETIRAcetam 500 MG TABLET (FP) PO SCH ×2 (09:52→21:07)
[2022-10-27] MEDS: PRENATAL VITAMINS W/ FOLIC ACID TABLET (FP) PO SCH (09:52)
[2022-10-27] MEDS: amLODIPine BESYLATE 10 MG TABLET (FP) PO SCH (09:52)
[2022-10-27] MEDS: LABETALOL HCL 100 MG TABLET (FP) PO SCH ×2 (09:52→21:07)
[2022-10-27] MEDS: BUDESONIDE/FORMETEROL FUMARATE 160/4.5 mcg INHALER IH SCH ×2 (09:52→21:08)
[2022-10-27] MEDS: THIAMINE HCL 100 MG TABLET (FP) PO SCH (21:07)
[2022-10-27] MEDS: MELATONIN 5 MG TABLETS PO SCH (21:07)
[2022-10-27] MEDS: OXYBUTYNIN CHLORIDE 5 MG TABLET PO SCH (21:07)
[2022-10-27] MEDS: NICOTINE POLACRILEX 2 MG GUM BUC PRN (21:08)
[2022-10-28] MEDS: levETIRAcetam 500 MG TABLET (FP) PO SCH ×2 (10:07→21:20)
[2022-10-28] MEDS: PRENATAL VITAMINS W/ FOLIC ACID TABLET (FP) PO SCH (10:07)
[2022-10-28] MEDS: BUDESONIDE/FORMETEROL FUMARATE 160/4.5 mcg INHALER IH SCH ×2 (10:07→21:21)
[2022-10-28] MEDS: amLODIPine BESYLATE 10 MG TABLET (FP) PO SCH (10:07)
[2022-10-28] MEDS: CHOLECALCIFEROL (VIT D3) 1,000 UNIT (25 MCG) TABLET PO SCH (10:07)
[2022-10-28] MEDS: LABETALOL HCL 100 MG TABLET (FP) PO SCH ×2 (10:07→21:20)
[2022-10-28] MEDS: OXYBUTYNIN CHLORIDE 5 MG TABLET PO SCH (21:20)
[2022-10-28] MEDS: MELATONIN 5 MG TABLETS PO SCH (21:20)
[2022-10-28] MEDS: THIAMINE HCL 100 MG TABLET (FP) PO SCH (21:20)
[2022-10-29] MEDS: BUDESONIDE/FORMETEROL FUMARATE 160/4.5 mcg INHALER IH SCH ×2 (09:41→21:29)
[2022-10-29] MEDS: CHOLECALCIFEROL (VIT D3) 1,000 UNIT (25 MCG) TABLET PO SCH (09:42)
[2022-10-29] MEDS: LABETALOL HCL 100 MG TABLET (FP) PO SCH ×2 (09:42→21:29)
[2022-10-29] MEDS: levETIRAcetam 500 MG TABLET (FP) PO SCH ×2 (09:42→21:29)
[2022-10-29] MEDS: amLODIPine BESYLATE 10 MG TABLET (FP) PO SCH (09:42)
[2022-10-29] MEDS: PRENATAL VITAMINS W/ FOLIC ACID TABLET (FP) PO SCH (09:42)
[2022-10-29] MEDS: OXYBUTYNIN CHLORIDE 5 MG TABLET PO SCH (21:29)
[2022-10-29] MEDS: MELATONIN 5 MG TABLETS PO SCH (21:29)
[2022-10-29] MEDS: THIAMINE HCL 100 MG TABLET (FP) PO SCH (21:29)
[2022-10-30] MEDS: PRENATAL VITAMINS W/ FOLIC ACID TABLET (FP) PO SCH (10:06)
[2022-10-30] MEDS: amLODIPine BESYLATE 10 MG TABLET (FP) PO SCH (10:06)
[2022-10-30] MEDS: BUDESONIDE/FORMETEROL FUMARATE 160/4.5 mcg INHALER IH SCH ×2 (10:07→22:07)
[2022-10-30] MEDS: CHOLECALCIFEROL (VIT D3) 1,000 UNIT (25 MCG) TABLET PO SCH (10:07)
[2022-10-30] MEDS: levETIRAcetam 500 MG TABLET (FP) PO SCH ×2 (10:07→22:07)
[2022-10-30] MEDS: LABETALOL HCL 100 MG TABLET (FP) PO SCH ×2 (10:07→22:07)
[2022-10-30] MEDS: THIAMINE HCL 100 MG TABLET (FP) PO SCH (22:07)
[2022-10-30] MEDS: MELATONIN 5 MG TABLETS PO SCH (22:07)
[2022-10-30] MEDS: OXYBUTYNIN CHLORIDE 5 MG TABLET PO SCH (22:07)
[2022-10-31 06:59] VITALS: RESP 18
[2022-10-31] MEDS: PRENATAL VITAMINS W/ FOLIC ACID TABLET (FP) PO SCH (09:09)
[2022-10-31] MEDS: CHOLECALCIFEROL (VIT D3) 1,000 UNIT (25 MCG) TABLET PO SCH (09:09)
[2022-10-31] MEDS: levETIRAcetam 500 MG TABLET (FP) PO SCH ×2 (09:10→21:21)
[2022-10-31] MEDS: LABETALOL HCL 100 MG TABLET (FP) PO SCH ×2 (09:10→21:21)
[2022-10-31] MEDS: amLODIPine BESYLATE 10 MG TABLET (FP) PO SCH (09:10)
[2022-10-31] MEDS: BUDESONIDE/FORMETEROL FUMARATE 160/4.5 mcg INHALER IH SCH ×2 (09:11→21:21)
[2022-10-31] MEDS: OXYBUTYNIN CHLORIDE 5 MG TABLET PO SCH (21:21)
[2022-10-31] MEDS: THIAMINE HCL 100 MG TABLET (FP) PO SCH (21:21)
[2022-10-31] MEDS: MELATONIN 5 MG TABLETS PO SCH (21:21)
[2022-11-01] MEDS: PRENATAL VITAMINS W/ FOLIC ACID TABLET (FP) PO SCH (09:40)
[2022-11-01] MEDS: CHOLECALCIFEROL (VIT D3) 1,000 UNIT (25 MCG) TABLET PO SCH (09:40)
[2022-11-01] MEDS: LABETALOL HCL 100 MG TABLET (FP) PO SCH ×2 (09:41→21:37)
[2022-11-01] MEDS: amLODIPine BESYLATE 10 MG TABLET (FP) PO SCH (09:41)
[2022-11-01] MEDS: levETIRAcetam 500 MG TABLET (FP) PO SCH ×2 (09:41→21:37)
[2022-11-01] MEDS: BUDESONIDE/FORMETEROL FUMARATE 160/4.5 mcg INHALER IH SCH ×2 (09:42→21:37)
[2022-11-01] MEDS: THIAMINE HCL 100 MG TABLET (FP) PO SCH (21:37)
[2022-11-01] MEDS: MELATONIN 5 MG TABLETS PO SCH (21:37)
[2022-11-01] MEDS: OXYBUTYNIN CHLORIDE 5 MG TABLET PO SCH (21:37)
[2022-11-02] MEDS: CHOLECALCIFEROL (VIT D3) 1,000 UNIT (25 MCG) TABLET PO SCH (10:05)
[2022-11-02] MEDS: PRENATAL VITAMINS W/ FOLIC ACID TABLET (FP) PO SCH (10:05)
[2022-11-02] MEDS: LABETALOL HCL 100 MG TABLET (FP) PO SCH ×2 (10:05→21:05)
[2022-11-02] MEDS: BUDESONIDE/FORMETEROL FUMARATE 160/4.5 mcg INHALER IH SCH ×2 (10:06→21:04)
[2022-11-02] MEDS: levETIRAcetam 500 MG TABLET (FP) PO SCH ×2 (10:06→21:05)
[2022-11-02] MEDS: amLODIPine BESYLATE 10 MG TABLET (FP) PO SCH (10:06)
[2022-11-02] MEDS: OXYBUTYNIN CHLORIDE 5 MG TABLET PO SCH (21:05)
[2022-11-02] MEDS: MELATONIN 5 MG TABLETS PO SCH (21:05)
[2022-11-02] MEDS: THIAMINE HCL 100 MG TABLET (FP) PO SCH (21:05)
[2022-11-02] MEDS: MAG HYDROX/AL HYDROX/SIMETH 30 ML UNIT-DOSE CUP PO PRN (21:37)
[2022-11-02] MEDS ORDERED: ASPIRIN 81 MG CHEWABLE TABLETS PO ONE (22:12)
[2022-11-02] MEDS ORDERED: METHOCARBAMOL 500 MG TABLET PO ONE (22:15)
[2022-11-02] MEDS: hydrOXYzine PAMOATE 25 MG CAPSULE (FP) PO PRN (22:32)
[2022-11-03] MEDS: LABETALOL HCL 100 MG TABLET (FP) PO SCH ×2 (09:35→21:41)
[2022-11-03] MEDS: amLODIPine BESYLATE 10 MG TABLET (FP) PO SCH (09:35)
[2022-11-03] MEDS: levETIRAcetam 500 MG TABLET (FP) PO SCH ×2 (09:35→21:41)
[2022-11-03] MEDS: PRENATAL VITAMINS W/ FOLIC ACID TABLET (FP) PO SCH (09:36)
[2022-11-03] MEDS: BUDESONIDE/FORMETEROL FUMARATE 160/4.5 mcg INHALER IH SCH ×2 (09:38→21:40)
[2022-11-03] MEDS: CHOLECALCIFEROL (VIT D3) 1,000 UNIT (25 MCG) TABLET PO SCH (10:12)
[2022-11-03] MEDS: MAG HYDROX/AL HYDROX/SIMETH 30 ML UNIT-DOSE CUP PO PRN ×2 (14:40→21:57)
[2022-11-03] MEDS: MELATONIN 5 MG TABLETS PO SCH (21:41)
[2022-11-03] MEDS: THIAMINE HCL 100 MG TABLET (FP) PO SCH (21:41)
[2022-11-03] MEDS: OXYBUTYNIN CHLORIDE 5 MG TABLET PO SCH (21:41)
[2022-11-04 07:11] VITALS: TEMP 97.8
[2022-11-04] MEDS: BUDESONIDE/FORMETEROL FUMARATE 160/4.5 mcg INHALER IH SCH (09:14)
[2022-11-04] MEDS: CHOLECALCIFEROL (VIT D3) 1,000 UNIT (25 MCG) TABLET PO SCH (09:14)
[2022-11-04] MEDS: levETIRAcetam 500 MG TABLET (FP) PO SCH (09:14)
[2022-11-04] MEDS: PRENATAL VITAMINS W/ FOLIC ACID TABLET (FP) PO SCH (09:14)
[2022-11-04] MEDS: amLODIPine BESYLATE 10 MG TABLET (FP) PO SCH (09:14)
[2022-11-04] MEDS: LABETALOL HCL 100 MG TABLET (FP) PO SCH (09:14)
[2022-11-04 09:53] VITALS: BP 117/67; PULSE 109
== END 2022-11-04 09:41 | disposition home or self-care (01) | DRG 772 ==
LOC: YASAS 13:11 → Y3W 18:14 → Y5N 10-24 10:55 → Y3W 10-24 10:59
PROVIDERS: ADMIT Allergy & Immunology; ATTEND Psychiatry & Neurology Pain Medicine
PROC: HZ42ZZZ Group Counseling for Substance Abuse Treatment, Cognitive-Behavioral (ICD-10-PCS; principal; 2022-10-21)
DX: F10.20 Alcohol dependence, uncomplicated (principal); F12.20 Cannabis dependence, uncomplicated; F17.210 Nicotine dependence, cigarettes, uncomplicated; F19.282 Other psychoactive substance dependence with psychoactive substance-induced sleep disorder; I10 Essential (primary) hypertension; J45.20 Mild intermittent asthma, uncomplicated; G40.909 Epilepsy, unspecified, not intractable, without status epilepticus; R07.9 Chest pain, unspecified; Z86.61 Personal history of infections of the central nervous system
CPT/HCPCS: 36415; 80053; 81003; 85027; 86780; 87635; 87811; 93005; 93010